=== PATIENT | female | born 2000 | race Native Hawaiian/Other Pacific Islander ===

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

== ENCOUNTER 2021-01-26 20:11 | Emergency (ER) | payer OTHER ==
[~2021-01-26] VITALS: Ht 165.1 cm; Wt 108.0 kg
[2021-01-26 22:15] VITALS: BP 142/75; TEMP 99
== END 2021-01-26 22:15 | disposition home or self-care (01) ==
LOC: ED 20:11
DX: S00.03XA Contusion of scalp, initial encounter (principal); Z87.898 Personal history of other specified conditions; W05.0XXA Fall from non-moving wheelchair, initial encounter; Y92.89 Other specified places as the place of occurrence of the external cause
CPT/HCPCS: 81025; 99283

== ENCOUNTER 2021-02-24 17:55 | Emergency (ER) | payer OTHER ==
[~2021-02-24] VITALS: Ht 165.1 cm; Wt 108.0 kg
[2021-02-24 19:16] LABS: PLATELET COUNT 202 K/uL (152-353)
[2021-02-24 19:26] LABS: POTASSIUM 3.7 mmol/L (3.6-5.2)
[2021-02-24 20:56] VITALS: BP 103/56; TEMP 99.4
== END 2021-02-24 20:56 | disposition home or self-care (01) ==
LOC: ED 17:55
PROVIDERS: Hospitalist
DX: U07.1 COVID-19 (principal); J12.82 Pneumonia due to coronavirus disease 2019
CPT/HCPCS: 36415; 80048; 85027; 93005; 96360; 96375; 99284; J2930

== ENCOUNTER 2021-02-25 09:00 | Outpatient (CLI) | payer OTHER ==
[~2021-02-25] VITALS: Ht 165.1 cm; Wt 106.6 kg
== END 2021-02-25 21:08 | disposition home or self-care (01) ==
LOC: INF 09:00
PROVIDERS: ATTEND Family Medicine
DX: Z23 Encounter for immunization (principal); U07.1 COVID-19
CPT/HCPCS: 96365; M0244

== ENCOUNTER 2021-03-02 12:43 | Outpatient (CLI) | payer OTHER ==
[~2021-03-02] VITALS: Ht 165.1 cm; Wt 102.1 kg
== END 2021-03-02 21:50 | disposition home or self-care (01) ==
LOC: INF 12:43
PROVIDERS: ATTEND Family Medicine
DX: E86.0 Dehydration (principal)
CPT/HCPCS: 96360

== ENCOUNTER 2021-08-03 11:48 | Outpatient (CLI) | payer OTHER | END 2021-08-03 22:08 | disposition home or self-care (01) | LOC: LABW 11:48 | PROVIDERS: ATTEND Family Medicine | DX: J02.9 Acute pharyngitis, unspecified (principal) | CPT/HCPCS: 87651 ==

== ENCOUNTER 2021-08-31 07:50 | Outpatient (CLI) | payer OTHER | END 2021-08-31 18:49 | disposition home or self-care (01) | LOC: US 07:50 | PROVIDERS: ATTEND Family Medicine | DX: N93.9 Abnormal uterine and vaginal bleeding, unspecified (principal) ==

== ENCOUNTER 2022-01-26 19:12 | Emergency (ER) | payer OTHER ==
[~2022-01-26] VITALS: Ht 165.1 cm; Wt 102.1 kg
[2022-01-26 19:30] VITALS: TEMP 98.2
[2022-01-26 21:30] LABS: PLATELET COUNT 322 K/uL (152-353)
[2022-01-26 22:00] LABS: POTASSIUM 3.6 mmol/L (3.6-5.2)
[2022-01-26 22:30] VITALS: BP 123/77
== END 2022-01-26 22:30 | disposition home or self-care (01) ==
LOC: ED 19:12
PROVIDERS: Emergency Medicine
DX: S00.03XA Contusion of scalp, initial encounter (principal); S13.8XXA Sprain of joints and ligaments of other parts of neck, initial encounter; W18.39XA Other fall on same level, initial encounter; Y92.89 Other specified places as the place of occurrence of the external cause
CPT/HCPCS: 36415; 80048; 81025; 85027; 99282

== ENCOUNTER 2022-11-08 10:19 | Outpatient (CLI) | payer OTHER | END 2022-11-08 19:47 | disposition home or self-care (01) | LOC: RAD 10:19 | PROVIDERS: ATTEND Nurse Practitioner Family | DX: S90.32XA Contusion of left foot, initial encounter (principal); Y92.89 Other specified places as the place of occurrence of the external cause ==

== ENCOUNTER 2023-01-15 21:30 | Emergency (ER) | payer OTHER ==
[~2023-01-15] VITALS: Ht 165.1 cm; Wt 91.6 kg
[2023-01-15 22:28] VITALS: BP 132/86; TEMP 99.2
== END 2023-01-15 22:28 | disposition home or self-care (01) ==
LOC: ED 21:30
DX: H66.92 Otitis media, unspecified, left ear (principal); S40.012A Contusion of left shoulder, initial encounter; W05.0XXA Fall from non-moving wheelchair, initial encounter; Y93.89 Activity, other specified; Y92.89 Other specified places as the place of occurrence of the external cause; Y99.0 Civilian activity done for income or pay; R59.1 Generalized enlarged lymph nodes; F32.A Depression, unspecified
CPT/HCPCS: 99283